=== PATIENT | male | born 1990 | race Caucasian/White ===

== ENCOUNTER 2020-05-08 16:47 | Emergency (ER) | payer SELFPAY ==
--- NOTE | 2020-05-08 17:26 | ED.PDOC ---
History of Present Illness - General Chief Complaint: ENT Problem Time Seen by Provider: 05/08/20 16:49 Source: patient, RN notes reviewed, Vital Signs reviewed Exam Limitations: no limitations - History of Present Illness Initial Comments: 30 yo male with hx of frequent sinusitis, ear infections comes in with 2 days of left ear pain. was using q-tip. seemed to get worse so came in for evaluation. no fever. no recent swimming. no drainage. states he has issues with allergies that does not respond to OTC treatment or nasal inhalers. Just moved here so doesn't have normal allergy prescriptions, unsure what he takes. Timing/Duration: gradual Severity: mild EENT Location: ear (L) Prearrival Treatment: no prearrival treatment Allergies/Adverse Reactions: Allergies Penicillinase Allergy (Verified 05/08/20 17:38) Home Medications: Ambulatory Orders Ciprofloxacin-Dexamethasone [Ciprodex 0.3-0.1 %] 1 lila OT BID 7 Days #1 tube 05/08/20 Prednisone 20 mg PO DAILY #7 tab 05/08/20 Review of Systems - Review of Systems Constitutional: Denies: chills, fever EENTM: States: ear pain. Denies: double vision, ear discharge, nose pain, nose congestion, throat swelling, mouth swelling Respiratory: Denies: cough, short of breath Cardiology: Denies: chest pain, palpitations Gastrointestinal/Abdominal: Denies: abdominal pain, diarrhea Genitourinary: Denies: discharge, frequency, hematuria Musculoskeletal: Denies: joint pain, muscle pain Skin: Denies: change in hair/nails, dryness Neurological: Denies: headache, numbness, paresthesia, tingling, tremors Past Medical History (General) - Patient Medical History Hx Seizures: No Hx Stroke: No Hx Dementia: No Hx Asthma: No Hx of COPD: No Hx Cardiac Disorders: No Hx Congestive Heart Failure: No Hx Pacemaker: No Hx Hypertension: No Hx Thyroid Disease: No Hx Diabetes: No Hx Gastroesophageal Reflux: No Hx Renal Disease: No Hx Cancer: No Hx of HIV: No Hx Hepatitis B: No Hx Hepatitis C: No Hx MRSA: No Hx Other PMH: No Physical Exam - Physical Exam General Appearance: Alert, Comfortable, No apparent distress Eye Exam: bilateral normal Ear Exam: right ear: auricle normal, left ear: canal normal - mild erythema, no swelling or drainage, TM normal - scarring noted, fluid, but no erythema or sign of infection Nasal Exam: normal inspection Throat Exam: normal mouth inspection, pharynx normal Neck: non-tender, full range of motion, supple, normal inspection, trachea midline Cardiovascular/Respiratory: regular rate, rhythm, no M/R/G, normal peripheral pulses, no JVD, normal breath sounds, no respiratory distress Abdominal Exam: non-tender, no organomegaly 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 The history and assessments from nurses notes were reviewed and considered, and the patient's home medication list was also reviewed and considered. My assessment completed here in the ED were discussed with the patient. All questions were answered, and they express understanding of my assessment and the plan. They have been instructed to return if their symptoms worsen, and have been asked to follow up with their primary care physician to recheck today's presenting complaint. Recommend establishing care with ENT due to frequent infection, and allergies not responding to treatment. return precautions given. I have review ed medication, benefits, alternatives and side effects. Patient decided to proceed with medication. Judith Ochoa DO #[id number] Departure - Departure Clinical Impression: Otitis externa Qualifiers: Otitis externa type: noninfectious Noninfectious otitis externa type: other t ype Chronicity: acute Laterality: left Qualified Code(s): H60.592 - Other noninfective acute otitis externa, left ear Allergic rhinitis Qualifiers: Allergic rhinitis trigger: other Allergic rhinitis seasonality: unspecified Qualified Code(s): J30.89 - Other allergic rhinitis Time of Disposition: 17:24 Disposition: Discharge to Home or Self Care Condition: Fair Departure Forms: ED Discharge - Pt. Copy, Patient Portal Self Enrollment Instructions: DI for Ear Pain-Adult, Seasonal Allergies (DC), Outer Ear Infection (DC) Diet: resume usual diet Activity: other - no swimming until ear pain resolved Prescriptions: Ciprofloxacin-Dexamethasone [Ciprodex 0.3-0.1 %] 1 lila OT BID 7 Days #1 tube Prednisone 20 mg PO DAILY #7 tab Home Medications: Ambulatory Orders Ciprofloxacin-Dexamethasone [Ciprodex 0.3-0.1 %] 1 lila OT BID 7 Days #1 tube 05/08/20 Prednisone 20 mg PO DAILY #7 tab 05/08/20 Additional Instructions: Please follow up with an Ear Nose throat (ENT/psychiatric specialist) of your choice to follow up on your frequent ear infections and allergies.
[2020-05-08 18:19] VITALS: BP 131/92; TEMP 96.6; O2SAT 99
== END 2020-05-08 17:30 | disposition home or self-care (01) ==
LOC: ER 16:47
DX: H60.592 Other noninfective acute otitis externa, left ear (principal); J30.89 Other allergic rhinitis; Z88.8 Allergy status to other drugs, medicaments and biological substances

== ENCOUNTER 2020-05-11 14:13 | Emergency (ER) | payer SELFPAY ==
[2020-05-11] MEDS ORDERED: traMADol HCL 50 MG TAB PO ONE (14:31)
[2020-05-11] MEDS ORDERED: KETOROLAC TROMETHAMINE INJ 30 MG/ML VIAL IM ONE (14:31)
--- NOTE | 2020-05-11 14:34 | ED.PDOC ---
History of Present Illness - General Chief Complaint: ENT Problem Stated Complaint: worsening ear pain Time Seen by Provider: 05/11/20 14:21 Source: patient Exam Limitations: no limitations - History of Present Illness Initial Comments: The patient is a 30-year-old male presents emergency room secondary to pain anterior to his left ear. He was seen here 2 days ago for an acute otitis externa by Dr. Ochoa. He was appropriately placed on drops and oral prednisone. Since then the ear has been getting better however he has been having more pain at essentially the anterior margin of the temporomandibular joint on the left. There is no palpable deformity. It is worse with movement. It is worse with palpation. No pain over the mastoid or maxillary sinuses. No fever. No rash. No sore throat or runny nose. No chest pain or shortness of breath. The patient reports that he has had issues with TMJ on the left in the past. Timing/Duration: other - 3 days Severity: moderate Improving Factors: nothing Worsening Factors: eating Associated Symptoms: denies symptoms Allergies/Adverse Reactions: Allergies Penicillinase Allergy (Verified 05/08/20 17:38) Home Medications: Ambulatory Orders Ciprofloxacin-Dexamethasone [Ciprodex 0.3-0.1 %] 1 lila OT BID 7 Days #1 tube 05/08/20 Prednisone 20 mg PO DAILY #7 tab 05/08/20 Tramadol HCl 50 mg PO Q8HR PRN #10 tab 05/11/20 Review of Systems - Review of Systems Constitutional: States: no symptoms reported EENTM: States: ear pain, nose congestion Respiratory: States: no symptoms reported Cardiology: States: no symptoms reported Gastrointestinal/Abdominal: States: no symptoms reported Genitourinary: States: no symptoms reported Musculoskeletal: States: no symptoms reported Skin: States: no symptoms reported Neurological: States: no symptoms reported Endocrine: States: no symptoms reported Hematologic/Lymphatic: States: no symptoms reported All other Systems: No Change from Baseline Past Medical History (General) - Patient Medical History Hx Seizures: No Hx Stroke: No Hx Dementia: No Hx Asthma: No Hx of COPD: No Hx Cardiac Disorders: No Hx Congestive Heart Failure: No Hx Pacemaker: No Hx Hypertension: No Hx Thyroid Disease: No Hx Diabetes: No Hx Gastroesophageal Reflux: No Hx Renal Disease: No Hx Cancer: No Hx of HIV: No Hx Hepatitis C: No Hx MRSA: No - Social History Hx Tobacco Use: No Family Medical History - Family History Mother Family History: No Known Physical Exam - Physical Exam General Appearance: Alert, Comfortable, No apparent distress Eye Exam: bilateral normal Ears, Nose, Throat: hearing grossly normal, normal pharynx, abnormal TM (L) - Mild residual swelling of the ear canal. 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 The patient has a known acute otitis externa for which he is undergoing what appears to be a successful treatment currently. He does need to complete the course of treatment for that. He does appear to be having a mild flare of TMJ on that side, likely in reaction to the localized inflammation from the ear. It is also possible there may be some nerve root irritation in the area. The patient has been given a dose of Toradol and will be written for short prescription of tramadol as a painkiller. He can continue to take [id number] anti-inflammatory such as Motrin or Aleve. Warm compress may also help reduce discomfort. ER warnings were given. I want him to follow back up with his primary care doctor in a few days. deandre silverio [id number] [facility] consulted Departure - Departure Clinical Impression: TMJ arthritis Qualifiers: Laterality: left Qualified Code(s): M26.642 - Arthritis of left temporomandi bular joint Disposition: Discharge to Home or Self Care Condition: Fair Departure Forms: ED Discharge - Pt. Copy, Patient Portal Self Enrollment Instructions: DI for Ear Pain-Adult, Temporomandibular Joint (TMJ) Disorders (DC) Diet: regular diet Activity: increase activity as tolerated Prescriptions: Tramadol HCl 50 mg PO Q8HR PRN #10 tab PRN Reason: Moderate Pain Home Medications: Ambulatory Orders Ciprofloxacin-Dexamethasone [Ciprodex 0.3-0.1 %] 1 lila OT BID 7 Days #1 tube 05/08/20 Prednisone 20 mg PO DAILY #7 tab 05/08/20 Tramadol HCl 50 mg PO Q8HR PRN #10 tab 05/11/20 Additional Instructions: The patient is a 30-year-old male presenting to the emergency room secondary to pain anterior to the left ear canal. The patient has a known acute otitis externa for which he is undergoing what appears to be a successful treatment currently. He does need to complete the course of treatment for that. He does appear to be having a mild flare of TMJ on that side, likely in reaction to the localized inflammation from the ear. It is also possible there may be some nerve root irritation in the area. The patient has been given a dose of Toradol and will be written for short prescription of tramadol as a painkiller. He can continue to take [id number] anti-inflammatory such as Motrin or Aleve. Warm compress may also help reduce discomfort. ER warnings were given. I want him to follow back up with his primary care doctor in a few days.
[2020-05-11 14:54] VITALS: TEMP 97.2
[2020-05-11 14:59] VITALS: BP 139/80; O2SAT 97
== END 2020-05-11 14:56 | disposition home or self-care (01) ==
LOC: ER 14:13
DX: M26.642 Arthritis of left temporomandibular joint (principal); H92.02 Otalgia, left ear; Z88.8 Allergy status to other drugs, medicaments and biological substances

== ENCOUNTER 2020-06-18 23:16 | Emergency (ER) | payer SELFPAY ==
[2020-06-18] MEDS ORDERED: AZITHROMYCIN 250 MG TAB PO ONE (23:33)
--- NOTE | 2020-06-18 23:36 | ED.PDOC ---
History of Present Illness - General Chief Complaint: ENT Problem Stated Complaint: sore thoat, right side throat swelling Time Seen by Provider: 06/18/20 23:33 Source: patient Exam Limitations: no limitations - History of Present Illness Initial Comments: ACUTE ONSET OF SORE THROAT AND SWELLING THIS EVENING. DENIES F/C HEADACHE. HISTORY OF STREP IN THE PAST. Timing/Duration: abrupt EENT Location: throat Prearrival Treatment: no prearrival treatment Improving Factors: nothing Worsening Factors: nothing Associated Symptoms: denies symptoms Allergies/Adverse Reactions: Allergies Penicillinase Allergy (Severe, Verified 06/18/20 23:30) Anaphylaxis Home Medications: Ambulatory Orders Tramadol HCl 50 mg PO Q8HR PRN #10 tab 05/11/20 Azithromycin [Zithromax] 500 mg PO DAILY #4 tab 06/18/20 Review of Systems - Review of Systems Constitutional: States: no symptoms reported EENTM: States: see HPI Respiratory: States: no symptoms reported Cardiology: States: no symptoms reported Gastrointestinal/Abdominal: States: no symptoms reported Genitourinary: States: no symptoms reported Past Medical History (General) - Patient Medical History Hx Seizures: No Hx Stroke: No Hx Dementia: No Hx Asthma: No Hx of COPD: No Hx Cardiac Disorders: No Hx Congestive Heart Failure: No Hx Pacemaker: No Hx Hypertension: No Hx Thyroid Disease: No Hx Diabetes: No Hx Gastroesophageal Reflux: No Hx Renal Disease: No Hx Cancer: No Hx of HIV: No Hx Hepatitis C: No Hx MRSA: No - Vaccination History Hx Tetanus, Diphtheria Vaccination: No Hx Influenza Vaccination: Yes - last year - Social History Hx Tobacco Use: No Hx Alcohol Use: No Family Medical History - Family History Mother Family History: No Known Physical Exam - Physical Exam General Appearance: Alert, Well Developed, Well Groomed, Well Hydrated, Well Nourished Ear Exam: bilateral ear: auricle normal, canal normal, TM normal Nasal Exam: normal inspection, active bleeding, discharge Throat Exam: normal mouth inspection, pharynx swelling, tonsillar exudate, tonsillar swelling Neck: non-tender, full range of motion, supple, lymphadenopathy (R), lymphadenopathy (L) Skin Exam: normal color, warm/dry Departure - Departure Clinical Impression: Pharyngitis Qualifiers: Pharyngitis/tonsillitis etiology: unspecified etiology Qualified Code(s): J02.9 - Acute pharyngitis, unspecified Time of Disposition: 23:34 Disposition: Discharge to Home or Self Care Condition: Good Departure Forms: ED Discharge - Pt. Copy, Patient Portal Self Enrollment Prescriptions: Azithromycin [Zithromax] 500 mg PO DAILY #4 tab Home Medications: Ambulatory Orders Tramadol HCl 50 mg PO Q8HR PRN #10 tab 05/11/20 Azithromycin [Zithromax] 500 mg PO DAILY #4 tab 06/18/20 Additional Instructions: IBUPROFEN OR TYLENOL FOR DISCOMFORT, RETURN TO ER IF ANY NEW OR WORSENING SYMPTOMS OR SEE PCP.
[2020-06-18 23:49] VITALS: BP 149/88; TEMP 98; O2SAT 97
== END 2020-06-18 23:49 | disposition home or self-care (01) ==
LOC: ER 23:16
DX: J02.9 Acute pharyngitis, unspecified (principal)